=== PATIENT | male | born 1975 | race Caucasian/White ===

== ENCOUNTER 2016-10-01 13:20 | Emergency (ER) | payer SELFPAY ==
[2016-10-01] MEDS ORDERED: Sodium Chloride 0.9% 10 ML Syringe FLUSH PRN (13:35)
[2016-10-01] MEDS ORDERED: Sodium Chloride 0.9% 2.5 ML Syringe FLUSH PRN (13:35)
[2016-10-01] MEDS ORDERED: Sodium Chloride 0.9% 1,000 ML IV ONE (13:35)
[2016-10-01] MEDS: Metoprolol Tartrate 5 MG/5 ML SDV IVPUSH SCH ×3 (14:02→14:51)
[2016-10-01] MEDS: Nitroglycerin 0.4 MG Tab.SL SL PRN ×3 (14:06→14:22)
[2016-10-01 14:31] LABS: CHLORIDE,CL 107 mmol/L (98-110); SODIUM,NA 141 mmol/L (136-146)
--- NOTE | 2016-10-01 14:46 | EDM.PDOC ---
ED HISTORY OF PRESENT ILLNESS - General Chief Complaint: Chest Pain Stated Complaint: CHEST PAIN Time Seen by Provider: 10/01/16 13:27 Source of Information: Reports: Patient History Limitations: Reports: No limitations - History of Present Illness INITIAL COMMENTS - FREE TEXT/NARRATIVE: History of present illness: [] Patient complains of increasing shortness of breath and chest pressure. Patient was recently in [place] and flew back to [place] 5 days ago. His symptoms began after he arrived. Patient denies any fevers, chills, cough, nausea, vomiting, diarrhea. Patient does have sleep apnea but is not currently using a CPAP machine. Review of systems: As per history of present illness and below otherwise all systems reviewed and negative. Past medical history: As per history of present illness and as reviewed below otherwise noncontributory. Surgical history: As per history of present illness and as reviewed below otherwise noncontributory. Social history: No reported history of drug or alcohol abuse. Family history: As per history of present illness and as reviewed below otherwise noncontributory. Physical exam: General: Well developed, well nourished in NAD HEENT: Atraumatic, normocephalic, pupils reactive, negative for conjunctival pallor or scleral icterus, mucous membranes moist, throat clear, neck supple, nontender, trachea midline. Lungs: Clear to auscultation, breath sounds equal bilaterally, chest nontender. Heart: S1S2, regular, negative for clicks, rubs, or JVD. Abdomen: Soft, nondistended, nontender. Negative for masses or hepatosplenomegaly. Negative for costovertebral tenderness. Pelvis: Stable nontender. Genitourinary: Deferred. Rectal: Deferred. Extremities: Atraumatic, negative for cords or calf pain. Neurovascular unremarkable. Neuro: Awake, alert, oriented. Cranial nerves II through XII unremarkable. Cerebellum unremarkable. Motor and sensory unremarkable throughout. Exam nonfocal. Diagnostics: [] Labs checked and are negative d-dimer and troponin. Chest x-ray is negative except for 9 mm nodule over the right ninth rib Therapeutics: [] Patient was given nitroglycerin and pressor for blood pressure control Impression: [] Uncontrolled high blood pressure, hypertensive urgency Plan: [] Followup PMD return to ER if symptoms worsen Definitive disposition and diagnosis as appropriate pending reevaluation and review of above. - Related Data Allergies/ADRs: Allergies Allergy/AdvReac Type Severity Reaction Status Date / Time No Known Allergies Allergy Verified 10/01/16 13:22 Home Meds: Home Meds Lisinopril/Hydrochlorothiazide [Lisinopril-Hctz 20-25 mg Tab] 1 each PO DAILY [History] Past Medical History Cardiovascular History: Reports: Hypertension Social & Family History - Tobacco Use Smoking Status *Q: Current Every Day Smoker Years of Tobacco use: 20 Packs/Tins Daily: 1 - Caffeine Use Caffeine Use: Reports: Energy drinks, Soda - Recreational Drug Use Recreational Drug Use: No ED ROS GENERAL - Review of Systems Review Of Systems: See Below (The history of present illness) ED EXAM, GENERAL - Physical Exam Exam: See Below (See history of present illness) Course - Vital Signs Last Recorded V/S: Last Vital Signs Temp 37.1 C 10/01/16 13:30 Pulse 76 10/01/16 15:15 Resp 20 10/01/16 15:15 BP 152/101 H 10/01/16 15:15 Pulse Ox 97 10/01/16 15:15 - Orders/Labs/Meds Orders: Active Orders 24 hr Category Date Time Status EKG 12 Lead [EKG Documentation Completion] [RC] STAT Care 10/01/16 13:31 Active Chest 1V Frontal [CR] Stat Exams 10/01/16 13:31 Taken Sodium Chloride 0.9% [Saline Flush] Med 10/01/16 13:35 Active 10 ml FLUSH ASDIRECTED PRN Sodium Chloride 0.9% [Saline Flush] Med 10/01/16 13:35 Active 2.5 ml FLUSH ASDIRECTED PRN Peripheral IV Insertion Adult [OM.PC] Stat Oth 10/01/16 13:34 Ordered Medication Orders Sodium Chloride (Saline Flush) 10 ml FLUSH ASDIRECTED PRN PRN Reason: Keep Vein Open Last Admin: 10/01/16 14:03 Dose: 10 ml Sodium Chloride (Saline Flush) 2.5 ml FLUSH ASDIRECTED PRN PRN Reason: Keep Vein Open Last Admin: 10/01/16 14:03 Dose: 2.5 ml Labs: Laboratory Tests 10/01/16 10/01/16 10/01/16 Range/Units 13:25 13:25 13:25 WBC 9.48 (4.0-11.0) K/uL RBC 5.16 (4.50-5.90) M/uL Hgb 14.5 (13.0-17.0) g/dL Hct 43.2 (38.0-50.0) % MCV 83.7 (80.0-98.0) fL MCH 28.1 (27.0-32.0) pg MCHC 33.6 (31.0-37.0) g/dL RDW Std Deviation 42.3 (28.0-62.0) fl RDW Coeff of Dilma 14 (11.0-15.0) % Plt Count 215 (150-400) K/uL MPV 10.70 (7.40-12.00) fL Neut % (Auto) 67.6 (48.0-80.0) % Lymph % (Auto) 21.3 (16.0-40.0) % [place] % (Auto) 7.0 (0.0-15.0) % Eos % (Auto) 3.4 (0.0-7.0) % Baso % (Auto) 0.7 (0.0-1.5) % Neut # 6.4 H (1.4-5.7) K/uL Lymph # 2.0 (0.6-2.4) K/uL [place] # 0.7 (0.0-0.8) K/uL Eos # 0.3 (0.0-0.7) K/uL Baso # 0.1 (0.0-0.1) K/uL Nucleated RBC % 0.0 /100WBC Nucleated RBCs # 0 K/uL D-Dimer, Quantitative (0.0-0.52) mg/LFEU Sodium 141 (136-146) mmol/L Potassium 3.7 (3.5-5.1) mmol/L Chloride 107 (98-110) mmol/L Carbon Dioxide 25 (21-31) mmol/L BUN 18 (6.0-23.0) mg/dL Creatinine 0.9 (0.6-1.5) mg/dL Est Cr Clr Drug Dosing 117.37 mL/min Estimated GFR (MDRD) > 60.0 ml/min Glucose 104 (60-110) mg/dL Calcium 9.0 (8.8-10.8) mg/dL Total Bilirubin 0.9 (0.1-1.5) mg/dL AST 24 (5-40) IU/L ALT 39 (8-54) IU/L Alkaline Phosphatase 86 (40-150) Troponin I < 0.10 (0.0-0.29) NG/ML B-Natriuretic Peptide (<100) PG/ML Total Protein 7.0 (6.0-8.0) g/dL Albumin 3.9 (3.5-5.0) g/dL Globulin 3.1 (2.0-3.5) g/dL Albumin/Globulin Ratio 1.3 (1.3-2.8) 10/01/16 10/01/16 Range/Units 13:25 13:25 WBC (4.0-11.0) K/uL RBC (4.50-5.90) M/uL Hgb (13.0-17.0) g/dL Hct (38.0-50.0) % MCV (80.0-98.0) fL MCH (27.0-32.0) pg MCHC (31.0-37.0) g/dL RDW Std Deviation (28.0-62.0) fl RDW Coeff of Dilma (11.0-15.0) % Plt Count (150-400) K/uL MPV (7.40-12.00) fL Neut % (Auto) (48.0-80.0) % Lymph % (Auto) (16.0-40.0) % [place] % (Auto) (0.0-15.0) % Eos % (Auto) (0.0-7.0) % Baso % (Auto) (0.0-1.5) % Neut # (1.4-5.7) K/uL Lymph # (0.6-2.4) K/uL [place] # (0.0-0.8) K/uL Eos # (0.0-0.7) K/uL Baso # (0.0-0.1) K/uL Nucleated RBC % /100WBC Nucleated RBCs # K/uL D-Dimer, Quantitative 0.38 (0.0-0.52) mg/LFEU Sodium (136-146) mmol/L Potassium (3.5-5.1) mmol/L Chloride (98-110) mmol/L Carbon Dioxide (21-31) mmol/L BUN (6.0-23.0) mg/dL Creatinine (0.6-1.5) mg/dL Est Cr Clr Drug Dosing mL/min Estimated GFR (MDRD) ml/min Glucose (60-110) mg/dL Calcium (8.8-10.8) mg/dL Total Bilirubin (0.1-1.5) mg/dL AST (5-40) IU/L ALT (8-54) IU/L Alkaline Phosphatase (40-150) Troponin I (0.0-0.29) NG/ML B-Natriuretic Peptide 156 H (<100) PG/ML Total Protein (6.0-8.0) g/dL Albumin (3.5-5.0) g/dL Globulin (2.0-3.5) g/dL Albumin/Globulin Ratio (1.3-2.8) Meds: Medications Generic Name Dose Route Start Last Admin Trade Name Frebrenda PRN Reason Stop Dose Admin Sodium Chloride 10 ml 10/01/16 13:35 10/01/16 14:03 Saline Flush FLUSH 10 ml ASDIRECTED PRN Administration Keep Vein Open Sodium Chloride 2.5 ml 10/01/16 13:35 10/01/16 14:03 Saline Flush FLUSH 2.5 ml ASDIRECTED PRN Administration Keep Vein Open Discontinued Medications Generic Name Dose Route Start Last Admin Trade Name Valerie PRN Reason Stop Dose Admin Sodium Chloride 1,000 mls @ 999 mls/hr 10/01/16 13:35 10/01/16 14:08 Normal Saline IV 10/01/16 14:35 999 mls/hr .Bolus ONE Administration Metoprolol Tartrate 5 mg 10/01/16 13:45 10/01/16 14:51 Lopressor IVPUSH 10/01/16 13:56 Not Given Q5M SHASHANK Nitroglycerin 0.4 mg 10/01/16 13:35 10/01/16 14:22 Nitrostat SL 10/01/16 13:46 0.4 mg Q5M PRN Administration Chest Pain Departure - Departure Time of Disposition: 15:43 Disposition: Home, Self-Care 01 Condition: good Clinical Impression: Hypertensive urgency Forms: ED Department Discharge Additional Instructions: The following information is given to patients seen in the emergency department who are being discharged to home. This information is to outline your options for follow-up care. We provide all patients seen in our emergency department with a follow-up referral. The need for follow-up, as well as the timing and circumstances, are variable depending upon the specifics of your emergency department visit. If you don't have a primary care physician on staff, we will provide you with a referral. We always advise you to contact your personal physician following an emergency department visit to inform them of the circumstance of the visit and for follow-up with them and/or the need for any referrals to a consulting specialist. The emergency department will also refer you to a specialist when appropriate. This referral assures that you have the opportunity for follow-up care with a specialist. All of these measure are taken in an effort to provide you with optimal care, which includes your follow-up. Under all circumstances we always encourage you to contact your private physician who remains a resource for coordinating your care. When calling for follow-up care, please make the office aware that this follow-up is from your recent emergency room visit. If for any reason you are refused follow-up, please contact the [facility] Emergency Department at and asked to speak to the emergency department charge nurse. Continue regular blood pressure meds Followup PMD return to ER if symptoms worsen - My Orders Last 24 Hours: My Active Orders 10/01/16 13:31 EKG 12 Lead [EKG Documentation Completion] [RC] STAT Chest 1V Frontal [CR] Stat 10/01/16 13:34 Peripheral IV Insertion Adult [OM.PC] Stat 10/01/16 13:35 Sodium Chloride 0.9% [Saline Flush] 10 ml FLUSH ASDIRECTED PRN Sodium Chloride 0.9% [Saline Flush] 2.5 ml FLUSH ASDIRECTED PRN - Assessment/Plan Last 24 Hours: My Active Orders 10/01/16 13:31 EKG 12 Lead [EKG Documentation Completion] [RC] STAT Chest 1V Frontal [CR] Stat 10/01/16 13:34 Peripheral IV Insertion Adult [OM.PC] Stat 10/01/16 13:35 Sodium Chloride 0.9% [Saline Flush] 10 ml FLUSH ASDIRECTED PRN Sodium Chloride 0.9% [Saline Flush] 2.5 ml FLUSH ASDIRECTED PRN
[2016-10-01 16:00] VITALS: BP 156/95
--- NOTE | 2016-10-03 16:20 | CR ---
EXAM DATE: 10/01/16 PATIENT'S AGE: 41 Patient: VENTURA CORNEJO Facility: [place], [place] Site . Site : [id number] Study: XRay Chest [id number]/13/2017 1:47:27 PM Ordering Physician: Juanito Saldaña Final Report: HISTORY: Chest pain and shortness of breath. FINDINGS: AP portable chest radiograph is underpenetrated. The cardiac silhouette is borderline enlarged. Pulmonary vasculature is an ill-defined. No lobar consolidation or pleural effusion is seen. A 9 mm nodular density is in the right upper thorax overlying the anterior right 3rd rib. IMPRESSION: 1. Borderline cardiomegaly with signs of pulmonary vascular suggesting mild pulmonary venous congestion. 2. No acute infiltrate. 3. Possible 9 mm pulmonary nodule overlying the anterior right 9th rib. Recommend PA and lateral chest radiographs for complete evaluation. Dictated by Kasey Sellers MD @ 10/01/2016 2:06:51 PM Dictated by: Kasey Sellers MD @ 10/01/2016 14:06:59 (Electronic Signature) Report Signed by Proxy and Original Signed Document filed in the Medical Record. [email or web address]
== END 2016-10-01 16:00 | disposition home or self-care (01) ==
LOC: MW.ED 13:20
DX: I16.0 Hypertensive urgency (principal); F17.210 Nicotine dependence, cigarettes, uncomplicated
CPT/HCPCS: 71010; 80053; 83880; 84484; 85025; 85379; 93005; 96361; 96374; 99285; A9270; J7040; 99284